=== PATIENT | male | born 1980 | race Caucasian/White ===

== ENCOUNTER 2024-10-10 22:26 | Emergency (ER) | payer BC, SELFPAY ==
[2024-10-10 22:31] VITALS: BP 194/120
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
[2024-10-10] MEDS: PERCOCET 5/325 1 TABLET PO (23:08)
[2024-10-10] MEDS: ADACEL 0.5 ML IM (23:10)
[2024-10-10 23:36] VITALS: BP 178/110
== END 2024-10-10 23:36 | disposition home or self-care (01) ==
LOC: EMR 22:26
PROVIDERS: EMERGENCY PHYSICIAN Emergency Medicine
DX: S42.001A Fracture of unspecified part of right clavicle, initial encounter for closed fracture (principal); S20.411A Abrasion of right back wall of thorax, initial encounter; V00.841A Fall from standing electric scooter, initial encounter; R03.0 Elevated blood-pressure reading, without diagnosis of hypertension; Z23 Encounter for immunization
CPT/HCPCS: 99283; 90471; 73000; 73030; 90715